=== PATIENT | female | born 1955 | race Caucasian/White ===

== ENCOUNTER 2018-10-12 13:13 | Outpatient (CLI) | payer MEDICAID ==
--- NOTE | 2018-10-12 15:11 | MRI ---
MRI OF THE LEFT KNEE WITHOUT CONTRAST: INDICATION: History of left knee pain and internal derangement. FINDINGS: There is moderate osteoarthrosis involving the left knee predominantly affecting the medial femorotib ial joint compartment. There is a complex degenerative-type tear involving a body and posterior junction of the medial menis cus with a displaced meniscal flap projecting into the medial gutter measuring approximately 6 x 5 mm . The tear is predominantly horizontally oriented and extends from the body through the junction int o the posterior horn of the medial meniscus. The lateral meniscus appears intact. A large full-thickness area of thinning is seen involving the mediofemoral condyle and medial tibial plateau with prominent marginal osteophytes. There is a focal full-thickness articular cartilage fis sure involving the superior and medial patellar ridge measuring 5 mm. There is mild joint effusion. The ACL, PCL, MCL, and LCLC are intact. The extensor mechanism is intact. IMPRESSION: 1. Moderate osteoarthrosis of the left knee. 2. Medial meniscal tear. POS: [facility]
--- NOTE | 2018-10-12 15:21 | MMO ---
Bilateral MAMMO Bilat Screen [facility]. CLINICAL HISTORY: Patient is 62 years old and is seen for screening. The patient has no family history of breast cancer. The patient has no personal history of cancer. The patient has a history of right Excisional Biopsy in ? - benign. VIEWS: The views performed were: bilateral craniocaudal and bilateral mediolateral oblique. FILMS COMPARED: The present examination has been compared to a prior imaging study performed at [facility] on 12/10/2016. This study has been interpreted with the assistance of computer-aided detection. MAMMOGRAM FINDINGS: There are scattered fibroglandular densities. There are stable benign appearing calcifications seen in both breasts. There are no suspicious masses, suspicious calcifications, or new areas of architectural distortion. IMPRESSION: THERE IS NO MAMMOGRAPHIC EVIDENCE OF MALIGNANCY. A ROUTINE FOLLOW-UP MAMMOGRAM IN 1 YEAR IS RECOMMENDED. ACR BI-RADS Category 2 - Benign finding MAMMOGRAPHY NOTE: 1. A negative mammogram report should not delay a biopsy if a dominant of clinically suspicious mass is present. 2. Approximately 10% to 15% of breast cancers are not detected by mammography. 3. Adenosis and dense breasts may obscure an underlying neoplasm. Reported by: LUIS RIVERA MD Electonically Signed: [id number]
== END 2018-10-12 13:14 | disposition home or self-care (01) ==
LOC: BICMRI 13:13
PROVIDERS: ATTEND Physician Assistant
DX: Z12.31 Encounter for screening mammogram for malignant neoplasm of breast (principal); M23.92 Unspecified internal derangement of left knee; M17.12 Unilateral primary osteoarthritis, left knee; S83.242A Other tear of medial meniscus, current injury, left knee, initial encounter
CPT/HCPCS: 77067

== ENCOUNTER 2020-10-24 08:03 | Outpatient (CLI) | payer MEDICAID | END 2020-10-24 08:04 | disposition home or self-care (01) | LOC: BICULT 08:03 | PROVIDERS: ATTEND Internal Medicine Gastroenterology | DX: R10.9 Unspecified abdominal pain (principal) | CPT/HCPCS: 76705 ==